=== PATIENT | female | born 1940 | race African-American/Black ===

== ENCOUNTER 2017-01-17 22:17 | Emergency (ER) | payer OTHER ==
[~2017-01-17] VITALS: Ht 157.5 cm; Wt 104.0 kg
[2017-01-18] MEDS ORDERED: FAMOTIDINE 20MG TABLET PO STA (01:34)
[2017-01-18] MEDS ORDERED: DIPHENHYDRAMINE 12.5MG/5ML UDC PO ONE (01:45)
[2017-01-18 02:57] VITALS: BP 142/51
== END 2017-01-18 04:19 | disposition home or self-care (01) ==
LOC: ER 22:56
DX: T78.40XA Allergy, unspecified, initial encounter (principal); I10 Essential (primary) hypertension; Z88.0 Allergy status to penicillin; M19.90 Unspecified osteoarthritis, unspecified site; Z96.651 Presence of right artificial knee joint; X58.XXXA Exposure to other specified factors, initial encounter
CPT/HCPCS: 93005; 99283; Q0163

== ENCOUNTER 2023-12-31 17:27 | Emergency (ER) | payer OTHER ==
[~2023-12-31] VITALS: Ht 170.2 cm; Wt 86.0 kg
[2023-12-31 17:29] VITALS: O2SAT 98
[2023-12-31 19:06] LABS: BASOPHILS % 0.4 % (0.0-2.0); EOSINOPHILS % 0.8 % (0.0-5.0); HEMOGLOBIN. 12.4 g/dL (12.0-16.0); LYMPHOCYTES % 16.1 % (20.0-50.0); MEAN CORPUSCULAR HEMOGLOBIN 31.6 pg (28.0-32.0); MEAN CORPUSCULAR HGB CONC 34.4 g/dL (31.0-37.0); MEAN CORPUSCULAR VOLUME 91.8 fL (81.0-99.0); MEAN PLATELET VOLUME 8.4 fl (7.4-10.4); MONOCYTES % 7.2 % (2.0-8.0); NEUTROPHILS % 75.5 % (40.0-76.0); PLATELET 218 x1000/uL (130-400); RED BLOOD CELL COUNT 3.93 mill/uL (4.2-5.4); WHITE BLOOD COUNT 8.6 x1000/uL (4.5-11.0)
[2023-12-31 19:13] LABS: CHLORIDE 107 mEq/L (98-107); POTASSIUM 3.8 mEq/L (3.5-5.1); SODIUM 142 mEq/L (136-145)
[2023-12-31 19:14] LABS: CALCIUM 9.9 mg/dL (8.7-10.4); CARBON DIOXIDE 29 mEq/L (21-32)
[2023-12-31 19:19] LABS: GLUCOSE 86 mg/dL (70-105); TROPONIN I HIGH SENSITIVITY 21 ng/L (3.0-34); UREA NITROGEN BLOOD 17 mg/dL (9-23)
[2023-12-31 19:21] LABS: ALANINE AMINOTRANSFERASE 14 IU/L (10-49); ALBUMIN 4.4 g/dL (3.2-4.8); ASPARTATE AMINOTRANSFERASE 27 IU/L (<34); BILIRUBIN DIRECT 0.1 mg/dL (<=3.0); BILIRUBIN TOTAL 0.4 mg/dL (0.1-1.0); PROTEIN TOTAL 6.9 g/dL (6.0-8.3)
[2023-12-31 19:23] LABS: THYROID STIMULATING HORMONE 1.28 uIU/mL (0.55-4.78)
[2023-12-31] MEDS ORDERED: SODIUM CHLORIDE 0.9% 1,000 ML IV ONE (20:45)
[2023-12-31 20:49] LABS: CLARITY URINE CLEAR (CLEAR); COLOR URINE YELLOW (YELLOW); GLUCOSE URINE NEGATIVE (NEGATIVE); KETONES URINE TRACE (NEGATIVE); LEUKOCYTE ESTERASE URINE 1+ (NEGATIVE); NITRITE URINE NEGATIVE (NEGATIVE); OCCULT BLOOD URINE NEGATIVE (NEGATIVE); PH URINE 5.5 (4.5-8.0); PROTEIN URINE 2+ (NEGATIVE); SPECIFIC GRAVITY URINE 1.018 (1.005-1.030); UROBILINOGEN URINE 0.2 E.U./dL (0.2-1.0)
[2023-12-31 21:00] LABS: BACTERIA URINE 1+; RBC URINE 0-2 /hpf (0-2); SQUAMOUS EPITHELIAL CELL URINE 1+ /lpf (RARE/1+)
[2023-12-31] MEDS: LEVOFLOXACIN 750MG PREMIX 150 ML IV ONE (22:02)
[2023-12-31] MEDS ORDERED: ONDANSETRON HCL 4MG TABLET PO PRN (22:15)
[2023-12-31] MEDS ORDERED: GUAIFENESIN 200MG/10ML SUGAR FREE UDC PO PRN (22:15)
[2023-12-31] MEDS ORDERED: ACETAMINOPHEN 325MG TABLET PO PRN ×2 (22:15)
[2023-12-31] MEDS ORDERED: ZOLPIDEM TARTRATE 5MG TABLET PO PRN (22:15)
[2023-12-31] MEDS ORDERED: CLONIDINE 0.1MG TABLET PO PRN (22:15)
[2023-12-31] MEDS ORDERED: DOCUSATE SODIUM 100MG CAPSULE PO PRN (22:15)
[2023-12-31] MEDS ORDERED: MAGNESIUM/ALUMINUM HYDROXIDE/SIMETHICONE 30ML UDC PO PRN (22:15)
[2023-12-31] MEDS ORDERED: KETOROLAC 15MG/ML VIAL IV PRN (22:15)
[2023-12-31] MEDS ORDERED: NITROGLYCERIN 0.4MG TABLET SL SL PRN (22:15)
[2023-12-31] MEDS ORDERED: IPRATROPIUM/ALBUTEROL 0.5-3(2.5)MG/3ML NEB NEB PRN (22:15)
[2023-12-31 22:43] VITALS: BP 146/41; PULSE 85; RESP 17; TEMP 37.22520; O2SAT 99
[2024-01-01] MEDS ORDERED: FAMOTIDINE 20MG TABLET PO SCH (09:00)
[2024-01-01] MEDS ORDERED: CEFTRIAXONE 1GM/50ML 50 ML IV SCH (09:00)
[2024-01-01] MEDS ORDERED: ENOXAPARIN 40MG/0.4ML SYR SUBCUT SCH (09:00)
[2024-01-01 13:19] LABS: *AMPHETAMINES SCREEN URINE NEGATIVE (NEGATIVE); *BARBITURATES SCREEN URINE NEGATIVE (NEGATIVE); *BENZODIAZEPINES SCREEN URINE NEGATIVE (NEGATIVE); *COCAINE SCREEN URINE NEGATIVE (NEGATIVE); CANNABINOID URINE SCREEN NEGATIVE (NEGATIVE); ECSTASY MDMA SCREEN URINE NEGATIVE (NEGATIVE); METHADONE URINE SCREEN NEGATIVE (NEGATIVE); OPIATES URINE SCREEN NEGATIVE (NEGATIVE); PHENCYCLIDINE URINE SCREEN NEGATIVE (NEGATIVE)
== END 2023-12-31 23:13 | disposition short-term general hospital (02) ==
LOC: ER 17:27
DX: R41.82 Altered mental status, unspecified (principal); I10 Essential (primary) hypertension; F02.80 Dementia in other diseases classified elsewhere, unspecified severity, without behavioral disturbance, psychotic disturbance, mood disturbance, and anxiety; G30.9 Alzheimer's disease, unspecified; Z88.0 Allergy status to penicillin; Z96.659 Presence of unspecified artificial knee joint; Z98.2 Presence of cerebrospinal fluid drainage device
CPT/HCPCS: 99285; 96365; 70450; 71045; 80076; 80305; 80048; 83880; 84443; 85025; 87086; 84484; 36415; 93005; 81003; J1956; J7030